=== PATIENT | female | born 1985 | race Two or more races ===

== ENCOUNTER 2023-10-31 10:21 | Emergency (ER) | payer OTHER ==
[2023-10-31 10:43] VITALS: BP 112/63; PULSE 77; RESP 18; TEMP 98.2; BMI 24.3
[2023-10-31] MEDS ORDERED: ONDANSETRON 4 MG/2 ML VIAL ONE (11:19)
[2023-10-31] MEDS: ONDANSETRON 4 MG/2 ML VIAL IVPUSH ONE (11:51)
[2023-10-31] MEDS: SODIUM CHLORIDE 1,000 ML IV STA (11:51)
[2023-10-31 12:21] LABS: PH,URINE 5.5 (5.0-8.0); URINE APPEARANCE CLEAR; URINE BILIRUBIN NEGATIVE (NEGATIVE); URINE COLOR YELLOW; URINE GLUCOSE (UA) NEGATIVE (NEGATIVE); URINE KETONE NEGATIVE (NEGATIVE); URINE LEUK ESTERASE NEGATIVE (NEGATIVE); URINE NITRITE NEGATIVE (NEGATIVE); URINE PROTEIN NEGATIVE (NEGATIVE)
[2023-10-31 12:21] LABS: BASO % 0.3 % (0-2.0); EOS % 4.3 % (0-4.5); HEMATOCRIT 36.5 % (32.4-45.2); HEMOGLOBIN 12.3 GM/dL (10.7-15.3); LYMPH % 35.8 % (8-40); MCH 31.6 pg (25.7-33.7); MCHC 33.7 g/dl (32.0-36.0); MEAN CELL VOLUME 93.7 fl (80-96); MEAN PLT VOLUME 9.1 fl (7.5-11.1); MONO % 6.3 % (3.8-10.2); NEUT % 53.3 % (42.8-82.8); PLATELET COUNT 236 10^3/uL (134-434); RDW 14.4 % (11.6-15.6); WHITE BLOOD COUNT 6.2 K/mm3 (4.0-10.0)
[2023-10-31 12:39] LABS: CHLORIDE 107 mmol/L (98-107); POTASSIUM 4.3 mmol/L (3.5-5.1); SODIUM 141 mmol/L (136-145)
[2023-10-31 12:53] LABS: ALBUMIN 3.7 g/dl (3.4-5.0); ANION GAP 8 mmol/L (4-13); BLOOD UREA NITROGEN 9.9 mg/dL (7-18); CALCIUM 8.8 mg/dL (8.5-10.1); CO2 26 mmol/L (21-32); GLUCOSE,RANDOM 83 mg/dL (74-106)
[2023-10-31 12:56] LABS: SGOT/AST 16 U/L (15-37); SGPT/ALT 16 U/L (13-61)
[2023-10-31 12:57] LABS: BILIRUBIN,TOTAL 0.9 mg/dL (0.2-1); CREATININE 0.6 mg/dL (0.55-1.3); TOT PROT 7.1 g/dl (6.4-8.2)
[2023-10-31 12:59] LABS: ALK PHOS 57 U/L (45-117)
== END 2023-10-31 17:10 | disposition home or self-care (01) ==
LOC: JER 10:21
PROC: 3E033GC Introduction of Other Therapeutic Substance into Peripheral Vein, Percutaneous Approach (ICD-10-PCS; principal; 2023-10-31)
PROC: 3E0337Z Introduction of Electrolytic and Water Balance Substance into Peripheral Vein, Percutaneous Approach (ICD-10-PCS; 2023-10-31)
DX: N83.201 Unspecified ovarian cyst, right side (principal); R10.31 Right lower quadrant pain; N94.0 Mittelschmerz; R11.2 Nausea with vomiting, unspecified
CPT/HCPCS: 36415; 74177-TC; 76705-TC; 76830-TC; 80053; 81003; 83690; 84702; 84703; 85025; 93005; 93010; 96361; 96374; 99285-25; Q9967

== ENCOUNTER 2024-08-19 15:27 | Emergency (ER) | payer OTHER ==
[2024-08-19 15:35] VITALS: BP 121/83; PULSE 83; RESP 18; TEMP 97; BMI 25.0
[2024-08-19] MEDS ORDERED: METHOCARBAMOL 500 MG TABLET ONE (16:59)
[2024-08-19] MEDS ORDERED: LIDOCAINE 4% PATCH TP ONE (16:59)
[2024-08-19] MEDS: METHOCARBAMOL 500 MG TABLET PO ONE (17:09)
[2024-08-19] MEDS: LIDOCAINE 4% PATCH TP ONE (17:09)
[2024-08-19] MEDS ORDERED: LIDOCAINE PATCH REMOVAL MC SCH (22:00)
== END 2024-08-19 17:27 | disposition home or self-care (01) ==
LOC: JER 15:27 → JERFT 15:27
DX: M62.838 Other muscle spasm (principal); M54.2 Cervicalgia; M54.6 Pain in thoracic spine; V49.40XA Driver injured in collision with unspecified motor vehicles in traffic accident, initial encounter; Y92.410 Unspecified street and highway as the place of occurrence of the external cause
CPT/HCPCS: 99283-25